=== PATIENT | male | born 1995 | race Caucasian/White ===

== ENCOUNTER 2016-11-01 17:25 | Emergency (ER) | payer OTHER | END 2016-11-01 18:16 | disposition home or self-care (01) | LOC: ER1 17:25 | DX: S81.812A Laceration without foreign body, left lower leg, initial encounter (principal); W27.0XXA Contact with workbench tool, initial encounter; Y92.009 Unspecified place in unspecified non-institutional (private) residence as the place of occurrence of the external cause | CPT/HCPCS: 12002; 99283 ==